=== PATIENT | female | born 1975 | race Caucasian/White ===

== ENCOUNTER 2016-12-01 14:58 | Emergency (ER) | payer MEDICARE, OTHER ==
[2016-12-01 15:05] VITALS: BP 151/84
--- NOTE | 2016-12-01 15:21 | EDM.PDOC ---
ED HPI GENERAL MEDICAL PROBLEM - General Chief Complaint: Chest Pain Stated Complaint: CHEST PAINS Time Seen by Provider: 12/01/16 15:15 Source of Information: Reports: Patient History Limitations: Reports: No Limitations - History of Present Illness INITIAL COMMENTS - FREE TEXT/NARRATIVE: 41 yo white female c/o mid sternal chest pain @ 2:30pm w/ tightness in back and tightness with breathing Onset: Today Onset Date: 12/01/16 Onset Time: 14:30 Duration: Hour(s): Location: Reports: Chest (06/05) Quality: Reports: Ache Severity: Moderate Improves with: Reports: None Worsens with: Reports: None Associated Symptoms: Reports: Chest Pain Bilateral Chest Pain Score (Numeric/FACES): 10 - Related Data Allergies Allergy/AdvReac Type Severity Reaction Status Date / Time No Known Allergies Allergy Verified 12/01/16 15:03 Home Meds: Home Meds Acetaminophen/Caffeine [[facility] Tension Headache Gelcap] 2 tab PO BID PRN 12/01/16 [ History] Albuterol [IJD: Albuterol HFA] 2 puff IH Q6H PRN 12/01/16 [History] Cholecalciferol (Vitamin D3) [Vitamin D3] 5,000 unit PO DAILY 12/01/16 [History] Dimethyl Fumarate [Tecfidera] 240 mg PO BID 12/01/16 [History] Levonorgestrel-Ethin Estradiol [Falmina-28 Tablet] 1 each PO DAILY 12/01/16 [ History] Potassium Chloride 20 meq PO DAILY 12/01/16 [History] Sertraline [Zoloft] 50 mg PO DAILY 12/01/16 [History] tiZANidine [Zanaflex] 4 mg PO TID 12/01/16 [History] ED ROS GENERAL - Review of Systems Review Of Systems: See Below Constitutional: Reports: No Symptoms HEENT: Reports: No Symptoms Respiratory: Reports: No Symptoms Cardiovascular: Reports: Chest Pain Endocrine: Reports: No Symptoms GI/Abdominal: Reports: No Symptoms : Reports: No Symptoms Musculoskeletal: Reports: No Symptoms Skin: Reports: No Symptoms Neurological: Reports: No Symptoms Psychiatric: Reports: Anxiety Hematologic/Lymphatic: Reports: No Symptoms Immunologic: Reports: No Symptoms ED EXAM, GENERAL - Physical Exam Exam: See Below Exam Limited By: No Limitations General Appearance: Alert, Anxious, Obese Eye Exam: Bilateral Eye: EOMI, PERRL Ears: Normal External Exam Nose: Normal Inspection Throat/Mouth: Normal Inspection, Normal Lips Head: Atraumatic, Normocephalic Neck: Normal Inspection, Supple Respiratory/Chest: No Respiratory Distress, Lungs Clear Cardiovascular: Normal Peripheral Pulses, Regular Rate, Rhythm, Other ( costocartilege tenderness) GI/Abdominal: Normal Bowel Sounds Back Exam: Normal Inspection Extremities: Normal Inspection, Normal Range of Motion Neurological: Alert, Oriented, CN II-XII Intact, Normal Cognition Psychiatric: Anxious Skin Exam: Warm, Dry, Intact Lymphatic: No Adenopathy Course - Vital Signs Last Recorded V/S: Last Vital Signs Temp 36.4 C 12/01/16 15:04 Pulse 79 12/01/16 15:04 Resp 16 12/01/16 15:04 BP 151/84 H 12/01/16 15:04 Pulse Ox 98 12/01/16 15:20 - Orders/Labs/Meds Orders: Active Orders 24 hr Category Date Time Status EKG Documentation Completion [RC] STAT Care 12/01/16 15:29 Active Sodium Chloride 0.9% [Normal Saline] 1,000 ml Med 12/01/16 15:30 Active IV ASDIRECTED Medication Orders Sodium Chloride (Normal Saline) 1,000 mls @ 75 mls/hr IV ASDIRECTED CHYNA Last Admin: 12/01/16 15:38 Dose: 75 mls/hr Labs: Laboratory Tests 12/01/16 12/01/16 12/01/16 Range/Units 15:21 15:21 15:21 WBC 5.7 (5.0-10.0) 10^3/uL RBC 4.50 (4.2-5.4) 10^6/uL Hgb 13.5 (12.0-16.0) g/dL Hct 42.2 (37.0-47.0) % MCV 93.8 (80-100) fL MCH 30.0 (27.0-34.0) pg MCHC 32.0 L (33.0-35.0) g/dL Plt Count 268 (150-450) 10^3/uL Neut % (Auto) 64.7 (42.2-75.2) % Lymph % (Auto) 22.5 (20.5-50.1) % [place] % (Auto) 9.8 H (2-8) % Eos % (Auto) 2.6 (1.0-3.0) % Baso % (Auto) 0.4 (0.0-1.0) % D-Dimer, Quantitative 248 (0-400) ng/mL Sodium 139 (135-145) mmol/L Potassium 4.0 (3.6-5.0) mmol/L Chloride 105 (101-111) mmol/L Carbon Dioxide 22.0 (21.0-31.0) mmol/L Anion Gap 16.0 BUN 11 (7-18) mg/dL Creatinine 0.7 (0.6-1.3) mg/dL Est Cr Clr Drug Dosing 91.33 mL/min Estimated GFR (MDRD) > 60 BUN/Creatinine Ratio 15.71 Glucose 121 H (74-105) mg/dL Calcium 9.2 (8.4-10.2) mg/dl Total Bilirubin 0.4 (0.2-1.0) mg/dL AST 74 H (10-42) IU/L ALT 61 H (10-60) IU/L Alkaline Phosphatase 58 (42-121) IU/L Troponin I < 0.02 (0.00-0.02) ng/ml Total Protein 7.4 (6.7-8.2) g/dl Albumin 4.0 (3.2-5.5) g/dl Globulin 3.4 Albumin/Globulin Ratio 1.18 Meds: Medications Generic Name Dose Route Start Last Admin Trade Name Freq PRN Reason Stop Dose Admin Sodium Chloride 1,000 mls @ 75 mls/hr 12/01/16 15:30 12/01/16 15:38 Normal Saline IV 75 mls/hr ASDIRECTED CHYNA Administration Discontinued Medications Generic Name Dose Route Start Last Admin Trade Name Freq PRN Reason Stop Dose Admin Al Hydroxide/Mg Hydroxide 30 ml 12/01/16 15:37 12/01/16 15:44 Gi Cocktail PO 12/01/16 15:38 30 ml ONETIME ONE Administration Lorazepam 2 mg 12/01/16 15:23 12/01/16 15:38 Ativan IVPUSH 12/01/16 15:24 2 mg ONETIME ONE Administration Departure - Departure Time of Disposition: 16:22 Disposition: Home, Self-Care 01 Condition: Good Clinical Impression: Non-cardiac chest pain, Costochondritis, acute Instructions: Nonspecific Chest Pain, [id number] Forms: ED Department Discharge Additional Instructions: Rest No heavy lifting, pulling or pushing Try Tylenol Extra Strength 500mg every 4-6 hours as needed Increase fluids ( Water / Juice) F/U w/ PCP - My Orders Last 24 Hours: My Active Orders 12/01/16 15:29 EKG Documentation Completion [RC] STAT 12/01/16 15:30 Sodium Chloride 0.9% [Normal Saline] 1,000 ml IV ASDIRECTED - Assessment/Plan Last 24 Hours: My Active Orders 12/01/16 15:29 EKG Documentation Completion [RC] STAT 12/01/16 15:30 Sodium Chloride 0.9% [Normal Saline] 1,000 ml IV ASDIRECTED
[2016-12-01] MEDS ORDERED: LORazepam 2 MG/ML Syringe IVPUSH ONE (15:23)
[2016-12-01] MEDS ORDERED: Sodium Chloride 0.9% 1,000 ML IV SCH (15:30)
[2016-12-01] MEDS ORDERED: GI Cocktail Oral Solution 30 ML PO ONE (15:37)
[2016-12-01 15:56] LABS: CHLORIDE,CL 105 mmol/L (101-111); SODIUM,NA 139 mmol/L (135-145)
--- NOTE | 2016-12-01 16:11 | CR ---
Clinical history: 41-year-old afebrile female with chest pain (WBC 5000 and D dimer "negative"). Interpretation: Subtle asymmetric retrocardiac infrahilar density on the left (upright AP portable chest) does not ho ld up on repeat PA and lateral films i.e. no sign of focal lobar consolidation. Normal cardiac silhouette without cephalization of vascular flow, signs of alveolar edema or dependen t pleural effusion. *No lung mass, hilar lymphadenopathy, focal lobar pneumonia, atelectasis/collapse or pneumothorax.
--- NOTE | 2016-12-05 12:33 | EKG ---
12/01/2016 - TOM WOLFE - [facility] 12-lead EKG shows normal sinus rhythm with heart rate of 69. No significant ST elevation or ST depression noted on this 12-lead EKG. Nonspecific T-wave inversions noted on lead V2 and V3. [facility] /[id number]
== END 2016-12-01 16:37 | disposition home or self-care (01) ==
LOC: DL.ED 14:58
DX: M94.0 Chondrocostal junction syndrome [Tietze] (principal); Z79.899 Other long term (current) drug therapy
CPT/HCPCS: 36415; 71020; 80053; 84484; 85025; 85379; 93005; 93010; 96374; 99284; 99285; A9270; J2060; J7030

== ENCOUNTER 2019-09-07 18:30 | Emergency (ER) | payer MEDICARE ==
[2019-09-07 18:51] VITALS: BP 137/70; PULSE 74
[2019-09-07] MEDS ORDERED: Sodium Chloride 0.9% 10 ML Syringe FLUSH PRN (19:03)
--- NOTE | 2019-09-07 19:43 | CR ---
PROCEDURE INFORMATION: Exam: XR Chest, 1 View Exam date and time: 09/07/2019 7:32 PM Age: 44 years old Clinical indication: Other: Pain; Additional info: Chest pain TECHNIQUE: Imaging protocol: XR of the chest Views: 1 view. COMPARISON: CR Chest 2V 12/01/2016 3:34 PM FINDINGS: Lungs: The lungs are symmetric, well expanded and clear. Pleural space: There are no pleural effusions. There is no pneumothorax. Heart/Mediastinum: The heart size is stable. The mediastinal and hilar contours are normal. The pulmonary vessels are normal. Bones/joints: No acute osseous pathology is identified. IMPRESSION: No acute cardiopulmonary disease process identified.
[2019-09-07 19:44] LABS: ANION GAP 16.9 mEq/L (7-13); CHLORIDE,CL 104 mmol/L (98-107); SODIUM,NA 141 mmol/L (136-145)
--- NOTE | 2019-09-07 19:46 | EDM.PDOC ---
ED HPI GENERAL MEDICAL PROBLEM - General Chief Complaint: Chest Pain Stated Complaint: CHEST PAIN Time Seen by Provider: 09/07/19 19:00 Source of Information: Reports: Patient, RN, RN Notes Reviewed History Limitations: Reports: No Limitations - History of Present Illness INITIAL COMMENTS - FREE TEXT/NARRATIVE: Patient presents to ER with complaint of epigastric abdominal pain. Patient states the pain radiates to up under the left breast. Patient states she does still have her gallbladder. Patient states the pain began a few hours ago and she has tried [id number] antacids and meds for indigestion. Patient states the last thing she ate was biscuits for breakfast. Patient rates the pain 8/10. Complains of nausea but no vomiting. Admits to shortness of breath with inspiration as well as the pain with inspiration. Denies any fever or chills. States she has had 2 bowel movements today and they were normal for her. States she does have some troubles with constipation, and wonders if the constipation is making the indigestion worse. Onset: Today Left Chest Pain Score (Numeric/FACES): 5 - Related Data Allergies Allergy/AdvReac Type Severity Reaction Status Date / Time No Known Allergies Allergy Verified 09/07/19 20:52 Home Meds: Home Meds Acetaminophen/Caffeine [[facility]vs Tension Headache Gelcap] 2 tab PO BID PRN 12/01/16 [History] Albuterol [IJD: Albuterol HFA] 2 puff IH Q6H PRN 12/01/16 [History] Cholecalciferol (Vitamin D3) [Vitamin D3] 5,000 unit PO DAILY 12/01/16 [History] Dimethyl Fumarate [Tecfidera] 240 mg PO BID 12/01/16 [History] Levonorgestrel/Ethin.estradiol [Falmina-28 Tablet] 1 each PO DAILY 12/01/16 [His tory] Potassium Chloride 20 meq PO DAILY 12/01/16 [History] Sertraline [Zoloft] 50 mg PO DAILY 12/01/16 [History] tiZANidine [Zanaflex] 4 mg PO TID 12/01/16 [History] Sertraline HCl 50 mg PO DAILY 09/07/19 [History] Past Medical History HEENT History: Reports: None Cardiovascular History: Reports: None Respiratory History: Reports: Asthma Gastrointestinal History: Reports: GERD Genitourinary History: Reports: Other (See Below) Other Genitourinary History: "kidney reflux" [employer] History: Reports: None Musculoskeletal History: Reports: None Neurological History: Reports: Headaches, Chronic, MS Psychiatric History: Reports: Anxiety Endocrine/Metabolic History: Reports: None Hematologic History: Reports: None Immunologic History: Reports: None Oncologic (Cancer) History: Reports: None Dermatologic History: Reports: None - Infectious Disease History Infectious Disease History: Reports: None - Past Surgical History HEENT Surgical History: Reports: None Respiratory Surgical History: Reports: None GI Surgical History: Reports: None Female Surgical History: Reports: Breast Reconstruction, Tubal Ligation, Other (See Below) Other Female Surgeries/Procedures: 2 surgeries on kidney- can't remember which one Endocrine Surgical History: Reports: None Neurological Surgical History: Reports: None Musculoskeletal Surgical History: Reports: None Oncologic Surgical History: Reports: None Dermatological Surgical History: Reports: None Social & Family History - Family History Family Medical History: Noncontributory - Tobacco Use Smoking Status *Q: Never Smoker - Caffeine Use Caffeine Use: Reports: None - Recreational Drug Use Recreational Drug Use: Yes Drug Use in Last 12 Months: Yes Recreational Drug Type: Reports: Marijuana/Hashish Recreational Drug Use Frequency: Daily ED ROS GENERAL - Review of Systems Review Of Systems: Comprehensive ROS is negative, except as noted in HPI. ED EXAM, GENERAL - Physical Exam Exam: See Below Exam Limited By: No Limitations General Appearance: Alert, WD/WN, Moderate Distress Eye Exam: Bilateral Eye: EOMI, Normal Inspection Ears: Normal External Exam, Hearing Grossly Normal Nose: Normal Inspection Throat/Mouth: Normal Inspection, Normal Voice, No Airway Compromise Head: Atraumatic, Normocephalic Neck: Normal Inspection, Supple, Non-Tender, Full Range of Motion Respiratory/Chest: No Respiratory Distress, Lungs Clear, Normal Breath Sounds, No Accessory Muscle Use, Chest Non-Tender Cardiovascular: Normal Peripheral Pulses, Regular Rate, Rhythm, No Edema, No Gallop, No JVD, No Murmur, No Rub GI/Abdominal: Normal Bowel Sounds, Soft, Tender (epigastric) (Female) Exam: Deferred Rectal (Female) Exam: Deferred Back Exam: Normal Inspection, Full Range of Motion, NT Extremities: Normal Inspection, Normal Range of Motion, Non-Tender, Normal Capillary Refill, No Pedal Edema Neurological: Alert, Oriented, CN II-XII Intact, Normal Cognition, Normal Gait, Normal Reflexes, No Motor/Sensory Deficits Psychiatric: Normal Affect, Normal Mood, Anxious, Tearful Skin Exam: Warm, Dry, Intact, Normal Color, No Rash Lymphatic: No Adenopathy Course - Vital Signs Last Recorded V/S: Last Vital Signs Temp 96.3 F L 09/07/19 18:48 Pulse 74 09/07/19 18:48 Resp 14 09/07/19 18:48 BP 137/70 09/07/19 18:48 Pulse Ox 98 09/07/19 18:48 - Orders/Labs/Meds Orders: Active Orders 24 hr Category Date Time Status EKG Documentation Completion [RC] STAT Care 09/07/19 19:03 Active Peripheral IV Care [RC] . DIRECTED Care 09/07/19 19:07 Active Peripheral IV Insertion Adult [OM.PC] Stat Oth 09/07/19 19:03 Ordered Labs: Laboratory Tests 09/07/19 09/07/19 09/07/19 Range/Units 19:10 19:10 19:10 WBC 7.8 (5.0-10.0) 10^3/uL RBC 4.78 (4.2-5.4) 10^6/uL Hgb 14.3 (12.0-16.0) g/dL Hct 44.7 (37.0-47.0) % MCV 93.5 (80-100) fL MCH 29.9 (27.0-34.0) pg MCHC 32.0 L (33.0-35.0) g/dL Plt Count 255 (150-450) 10^3/uL Neut % (Auto) 82.6 H (42.2-75.2) % Lymph % (Auto) 8.7 L (20.5-50.1) % [place] % (Auto) 6.9 (2-8) % Eos % (Auto) 1.4 (1.0-3.0) % Baso % (Auto) 0.4 (0.0-1.0) % PT 9.3 (9.0-12.0) SEC INR 1.0 (0.9-1.2) D-Dimer, Quantitative (0-400) ng/mL Sodium 141 (136-145) mmol/L Potassium 3.9 (3.5-5.1) mmol/L Chloride 104 (98-107) mmol/L Carbon Dioxide 24 (21-32) mmol/L Anion Gap 16.9 H (7-13) mEq/L BUN 8 (7-18) mg/dL Creatinine 0.87 (0.55-1.02) mg/dL Est Cr Clr Drug Dosing TNP Estimated GFR (MDRD) > 60 BUN/Creatinine Ratio 9.2 (No establ ref range) Glucose 103 H (74-99) mg/dL Calcium 8.2 L (8.5-10.1) mg/dL Total Bilirubin 0.2 (0.2-1.0) mg/dL AST 27 (15-37) U/L ALT 59 (14-59) U/L Alkaline Phosphatase 66 (46-116) U/L Troponin I 0.037 (0.000-0.056) ng/mL B-Natriuretic Peptide 13 (0-100) pg/ml Total Protein 7.0 (6.4-8.2) g/dL Albumin 3.8 (3.4-5.0) g/dL Globulin 3.2 Albumin/Globulin Ratio 1.2 Amylase (25-115) U/L Lipase (73-393) U/L Urine Color (YELLOW) Urine Appearance (CLEAR) Urine pH (5.0-9.0) Ur Specific [place] (1.005-1.030) Urine Protein (NEGATIVE) Urine Glucose (UA) (NEGATIVE) Urine Ketones (NEGATIVE) Urine Occult Blood (NEGATIVE) Urine Nitrite (NEGATIVE) Urine Bilirubin (NEGATIVE) Urine Urobilinogen (0.2-1.0) mg/dL Ur Leukocyte Esterase (NEGATIVE) 09/07/19 09/07/19 09/07/19 Range/Units 19:10 19:10 20:26 WBC (5.0-10.0) 10^3/uL RBC (4.2-5.4) 10^6/uL Hgb (12.0-16.0) g/dL Hct (37.0-47.0) % MCV (80-100) fL MCH (27.0-34.0) pg MCHC (33.0-35.0) g/dL Plt Count (150-450) 10^3/uL Neut % (Auto) (42.2-75.2) % Lymph % (Auto) (20.5-50.1) % [place] % (Auto) (2-8) % Eos % (Auto) (1.0-3.0) % Baso % (Auto) (0.0-1.0) % PT (9.0-12.0) SEC INR (0.9-1.2) D-Dimer, Quantitative < 100 (0-400) ng/mL Sodium (136-145) mmol/L Potassium (3.5-5.1) mmol/L Chloride (98-107) mmol/L Carbon Dioxide (21-32) mmol/L Anion Gap (7-13) mEq/L BUN (7-18) mg/dL Creatinine (0.55-1.02) mg/dL Est Cr Clr Drug Dosing Estimated GFR (MDRD) BUN/Creatinine Ratio (No establ ref range) Glucose (74-99) mg/dL Calcium (8.5-10.1) mg/dL Total Bilirubin (0.2-1.0) mg/dL AST (15-37) U/L ALT (14-59) U/L Alkaline Phosphatase (46-116) U/L Troponin I (0.000-0.056) ng/mL B-Natriuretic Peptide (0-100) pg/ml Total Protein (6.4-8.2) g/dL Albumin (3.4-5.0) g/dL Globulin Albumin/Globulin Ratio Amylase 33 (25-115) U/L Lipase 91 (73-393) U/L Urine Color Yellow (YELLOW) Urine Appearance Clear (CLEAR) Urine pH 6.5 (5.0-9.0) Ur Specific [place] 1.025 (1.005-1.030) Urine Protein Negative (NEGATIVE) Urine Glucose (UA) Negative (NEGATIVE) Urine Ketones Trace H (NEGATIVE) Urine Occult Blood Negative (NEGATIVE) Urine Nitrite Negative (NEGATIVE) Urine Bilirubin Negative (NEGATIVE) Urine Urobilinogen 1.0 (0.2-1.0) mg/dL Ur Leukocyte Esterase Negative (NEGATIVE) Meds: Medications Discontinued Medications Generic Name Dose Route Start Last Admin Trade Name Freq PRN Reason Stop Dose Admin Al Hydroxide/Mg Hydroxide 30 ml 09/07/19 20:13 09/07/19 20:25 Gi Cocktail PO 09/07/19 20:14 30 ml ONETIME ONE Administration Fentanyl 50 mcg 09/07/19 19:58 09/07/19 20:32 Sublimaze IVPUSH 09/07/19 19:59 50 mcg ONETIME ONE Administration Ondansetron HCl 4 mg 09/07/19 20:25 09/07/19 20:28 Zofran IVPUSH 09/07/19 20:26 4 mg ONETIME ONE Administration Sodium Chloride 10 ml 09/07/19 19:03 09/07/19 19:23 Saline Flush FLUSH 10 ml ASDIRECTED PRN Administration Keep Vein Open - Radiology Interpretation Free Text/Narrative:: Chest xray: PROCEDURE INFORMATION: Exam: XR Chest, 1 View Exam date and time: 09/07/2019 7:32 PM Age: 44 years old Clinical indication: Other: Pain; Additional info: Chest pain TECHNIQUE: Imaging protocol: XR of the chest Views: 1 view. COMPARISON: CR Chest 2V 12/01/2016 3:34 PM FINDINGS: Lungs: The lungs are symmetric, well expanded and clear. Pleural space: There are no pleural effusions. There is no pneumothorax. Heart/Mediastinum: The heart size is stable. The mediastinal and hilar contours are normal. The pulmonary vessels are normal. Bones/joints: No acute osseous pathology is identified. IMPRESSION: No acute cardiopulmonary disease process identified. Thank you for allowing us to participate in the care of your patient. Dictated and Authenticated by: Alyssa Barlow MD 09/07/2019 7:43 PM Central Time ([place] & [place]) See rad report Departure - Departure Time of Disposition: 21:22 Disposition: Home, Self-Care 01 Reason for Transfer *Q: Other Condition: Fair Clinical Impression: GERD (gastroesophageal reflux disease) Qualifiers: Esophagitis presence: esophagitis presence not specified Qualified Code(s): K21.9 - Gastro-esophageal reflux disease without esophagitis Instructions: Indigestion, [id number], Food Choices for Gastroesophageal Reflux Disease, Adult, [id number], Nonspecific Chest Pain, Adult, [id number], Gastroesophageal Reflux Disease, Adult, [id number] Referrals: Cristiane Erazo MD [Primary Care Provider] - Forms: ED Department Discharge Additional Instructions: Rx: Carafate, Prilosec Drink plenty of water Follow food choices for reflux Follow-up with your primary care provider next week Sepsis Event Note (ED) - Evaluation Sepsis Screening Result: No Definite Risk - Focused Exam Vital Signs: Vital Signs Temp Pulse Resp BP Pulse Ox 09/07/19 18:48 96.3 F L 74 14 137/70 98 - My Orders Last 24 Hours: My Active Orders 09/07/19 19:03 EKG Documentation Completion [RC] STAT Peripheral IV Insertion Adult [OM.PC] Stat 09/07/19 19:07 Peripheral IV Care [RC] . DIRECTED - Assessment/Plan Last 24 Hours: My Active Orders 09/07/19 19:03 EKG Documentation Completion [RC] STAT Peripheral IV Insertion Adult [OM.PC] Stat 09/07/19 19:07 Peripheral IV Care [RC] . DIRECTED
[2019-09-07] MEDS ORDERED: fentaNYL 100 MCG/2 ML SDV IVPUSH ONE (19:58)
[2019-09-07] MEDS ORDERED: GI Cocktail Oral Solution 30 ML PO ONE (20:13)
[2019-09-07] MEDS ORDERED: Ondansetron 4 MG/2 ML SDV IVPUSH ONE (20:25)
== END 2019-09-07 21:30 | disposition home or self-care (01) ==
LOC: DL.ED 18:30
DX: K21.9 Gastro-esophageal reflux disease without esophagitis (principal); J45.909 Unspecified asthma, uncomplicated; F41.9 Anxiety disorder, unspecified; Z79.899 Other long term (current) drug therapy
CPT/HCPCS: 36415; 71045; 80053; 81003; 82150; 83690; 83880; 84484; 85025; 85379; 85610; 93005; 96374; 96375; 99284; A9270; J2405; J3010